=== PATIENT | male | born 1950 | race Hispanic/Latino ===

== ENCOUNTER 2018-10-01 07:17 | Outpatient (CLI) | payer BC | END 2018-10-01 07:18 | disposition home or self-care (01) | LOC: RAD 07:17 ==

== ENCOUNTER 2018-11-19 07:07 | Outpatient (CLI) | payer BC | END 2018-11-19 07:08 | disposition home or self-care (01) | LOC: LAB 07:07 ==

== ENCOUNTER 2018-12-12 10:51 | Emergency (ER) | payer BC, OTHER ==
[2018-12-12 11:29] VITALS: BMI 39.1
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
[2018-12-12 11:45] VITALS: RESP 18
[2018-12-12 12:46] VITALS: BP 123/53; PULSE 85; TEMP 98; O2SAT 99
== END 2018-12-12 12:43 | disposition home or self-care (01) ==
LOC: ED 10:51
DX: S16.1XXA Strain of muscle, fascia and tendon at neck level, initial encounter (principal); V49.9XXA Car occupant (driver) (passenger) injured in unspecified traffic accident, initial encounter; E11.9 Type 2 diabetes mellitus without complications; I10 Essential (primary) hypertension; I25.10 Atherosclerotic heart disease of native coronary artery without angina pectoris; Z95.1 Presence of aortocoronary bypass graft

== ENCOUNTER 2019-01-15 07:16 | Outpatient (CLI) | payer BC | END 2019-01-15 07:17 | disposition home or self-care (01) | LOC: LAB 07:16 ==